=== PATIENT | female | born 1980 | race Caucasian/White ===

== ENCOUNTER 2017-02-12 04:21 | Emergency (ER) | payer SELFPAY ==
[~2017-02-12] VITALS: Ht 170.2 cm; Wt 45.5 kg
[2017-02-12 04:59] LABS: HEMATOCRIT 38.5 % (36.0-46.0); MCH 32.1 PG (29.0-34.0); MCHC 34.3 G/DL (30.0-36.0); MCV 93.7 FL (83-99); PLATELET COUNT 293 K/uL (156-360); RBC DIS.WIDTH-CV 11.9 % (11.8-14.6); RBC DIS.WIDTH-SD 40.9 % (39-53); RED BLOOD COUNT 4.11 M/uL (3.80-5.20); WHITE BLOOD COUNT 12.3 K/uL (4.1-10.2)
[2017-02-12 05:07] LABS: CHLORIDE 102 mEq/L (99-109); POTASSIUM 4.1 mEq/L (3.7-5.4); SODIUM 136 mEq/L (136-147)
[2017-02-12 05:09] LABS: GLUCOSE 101 mg/dL (70-99)
[2017-02-12 05:11] LABS: ANION GAP 10 MEQ/L (2-14); TOTAL BILIRUBIN 0.8 mg/dL (0.0-1.0)
[2017-02-12 05:13] LABS: ALKALINE PHOSPHATASE 96 IU/L (3-129)
[2017-02-12 05:14] LABS: UREA NITROGEN (BUN) 12 mg/dL (9-23)
[2017-02-12 05:16] LABS: LIPASE 19 U/L (1.0-51.0)
[2017-02-12 05:27] LABS: QUANTITATIVE HCG < 4.0 MIU/ML
[2017-02-12 05:34] LABS: GFR ESTIMATE (CALCULATED) > 59 mL/min/
[2017-02-12 05:48] LABS: ADD MIUA? YES; BILIRUBIN NEGATIVE; BLOOD NEGATIVE; COLOR YELLOW ((YELLOW)); GLUCOSE (STRIP) NEGATIVE; KETONES 20; LEUKOCYTES NEGATIVE; NITRITE NEGATIVE; PROTEIN (STRIP) 30; SPECIFIC GRAVITY 1.017 (1.000-1.030); UROBILINOGEN 0.2 MG/DL (0.2-1.0)
[2017-02-12 05:55] LABS: BACTERIA RARE /HPF; EPITHELIAL CELLS RARE /HPF; HYALINE CASTS 0-5 /LPF; MUCUS TRACE /LPF; RED BLOOD CELLS 0-5 /HPF (0-5); UCUL ADDED? NO; WHITE BLOOD CELLS 0-5 /HPF (0-5)
[2017-02-12] MEDS ORDERED: PEPCID20 MG PO (10:40)
[2017-02-12] MEDS ORDERED: CARAFATE1 GM PO (10:40)
[2017-02-12 11:01] VITALS: BP 100/60
== END 2017-02-12 11:02 | disposition home or self-care (01) ==
LOC: EME 04:21
DX: R10.30 Lower abdominal pain, unspecified (principal); M54.6 Pain in thoracic spine; F17.200 Nicotine dependence, unspecified, uncomplicated
CPT/HCPCS: 71020; 76705; 80053; 81003; 83690; 84702; 85027; 99281; 99283